=== PATIENT | female | born 1990 | race African-American/Black ===

== ENCOUNTER 2017-03-07 19:15 | Emergency (ER) | payer OTHER ==
[~2017-03-07] VITALS: Ht 162.6 cm; Wt 75.0 kg
[2017-03-07 19:22] VITALS: Ht 162.6 cm; Wt 75.0 kg
[2017-03-07] MEDS ORDERED: ACETAMINOPHEN 325 MG TAB PO STA (19:51)
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
[2017-03-07] MEDS ORDERED: LEVE750T PO (20:02)
[2017-03-07] MEDS ORDERED: LEVETIRACETAM 500 MG TAB PO STA (20:07)
[2017-03-07] MEDS ORDERED: LEVETIRACETAM 250 MG TAB PO STA (20:13)
[2017-03-07 22:05] VITALS: TEMP 36.8
[2017-03-07 22:38] VITALS: BP 120/82; PULSE 79; O2SAT 97
== END 2017-03-07 22:38 | disposition home or self-care (01) ==
LOC: C.EDB 19:20 → C.EDA 22:38
DX: S01.81XA Laceration without foreign body of other part of head, initial encounter (principal); G40.909 Epilepsy, unspecified, not intractable, without status epilepticus; I69.359 Hemiplegia and hemiparesis following cerebral infarction affecting unspecified side; Z79.899 Other long term (current) drug therapy; Y04.0XXA Assault by unarmed brawl or fight, initial encounter

== ENCOUNTER 2017-04-06 09:28 | Emergency (ER) | payer OTHER ==
[~2017-04-06] VITALS: Ht 289.6 cm; Wt 88.5 kg
[~2017-04-06 09:28] MED LIST: LEVE750T PO
[2017-04-06 09:43] VITALS: Ht 289.6 cm; Wt 88.5 kg
[2017-04-06 09:49] VITALS: O2SAT 97
--- NOTE | 2017-04-06 10:07 | EMERGENCY ROOM VISIT NOTE ---
History Report prepared by Neoibbhumika: Aaron Dominguez Under the Supervision of: Dr. Ghassan Saenz D.O. First contact with patient: 09:40 Stated Complaint: SEIZURE History of Present Illness The patient is a 26 year old female who presents to the Emergency Room with complaints of an episode of generalized seizure-like activity occurring just prior to arrival. She is on Keppra for epilepsy, and states that she has been taking her medication as normal. She took her normal dose today. The patient was sitting outside of [email or web address] when her episode occurred. She is unsure how long it lasted. Per nursing staff, the patient's seizure was witnessed by bystanders, who claim that the patient hit her head on the fall. They state that the patient's episode was reported to have lasted for 1-2 minutes, and states that she was unconscious briefly following the episode. They note that the patient is currently homeless, and is sleeping at a local [facility]. The patient did not bite her tongue during her seizure. Source of History: patient Onset: Just prior to arrival Position: other (generalized) Quality: other (seizure-like activity) Timing: other (episode) Associated Symptoms: + LOC Review of Systems See HPI for pertinent positives & negatives. A total of 10 systems reviewed and were otherwise negative. Past Medical & Surgical Medical Problems: (1) Seizures (2) Stroke Family History No pertinent family history stated. Social History Smoking Status: Never Smoker Marital Status: single Housing Status: lives with family Occupation Status: unemployed Current/Historical Medications Scheduled Levetiracetam (Keppra), 750 MG PO BID Allergies Coded Allergies: No Known Allergies (Unverified , 03/07/17) Physical Exam Vital Signs Date Time Temp Pulse Resp B/P (MAP) Pulse Ox O2 Delivery O2 Flow Rate FiO2 04/06/17 09:49 97 Room Air 04/06/17 09:43 37.5 99 18 130/78 97 Room Air Physical Exam CONSTITUTIONAL/VITAL SIGNS: Reviewed / noted above. GENERAL: Non-toxic in appearance. INTEGUMENTARY: Warm, dry, and [place]. HEAD: Normocephalic. EYES: without scleral icterus or trauma. ENT/OROPHARYNX: clear and moist. LYMPHADENOPATHY/NECK: Is supple without lymphadenopathy or meningismus. RESPIRATORY: Lungs clear and equal. CARDIOVASCULAR: Regular rate and rhythm. GI/ABDOMEN: Soft and nontender. No organomegaly or pulsatile mass. No rebound or guarding. Normal bowel sounds. EXTREMITIES: Warm and well perfused. BACK: No CVA tenderness. NEUROLOGICAL: Intact without focal deficits. PSYCHIATRIC: normal affect. MUSCULOSKELETAL: Normally developed with good muscle tone. Medical Decision & Procedures ED Course 0940: Previous medical records were reviewed. The patient was evaluated in room B3B. A complete history and physical examination was performed. 1010: On reevaluation, the patient is resting comfortably. I discussed the results and findings with the patient. She verbalized agreement of the treatment plan. She was discharged home. Medical Decision Differential diagnosis: Etiologies such as infection, hypoglycemia, electrolyte abnormalities, cardiac sources, intracerebral event, trauma, toxicologic, neurologic, as well as others were entertained. This is a 26-year-old female who presents to the ED with a chief complaint of a seizure. The patient has a history of seizures. She is currently on Keppra 750 mg twice a day. The patient, per EMS had a witnessed seizure that lasted 1- 2 minutes. The patient was transported here by EMS. She had a normal blood sugar. The patient is currently awake, alert and oriented. She has no complaints. She did reportedly hit her head but denies any head pains. She denies any tenderness to palpation of her head or neck and does not have any palpable injury to the head. She did not bite her tongue or have incontinence. She denies any injuries and reports that she has been taking her medication as directed. The patient's physical exam was unremarkable. Her vital signs are stable. After exam, the patient was advised to contact her neurologist. She is felt to be stable for discharge and outpatient follow-up. I do not suspect significant injury and she is completely resolve to her baseline. The patient does report that she is currently homeless. She spends the days at a "[employer]" ([facility]) and the nights at a local [facility]. Medication Reconcilliation Current Medication List: was personally reviewed by me Blood Pressure Screening Patient's blood pressure: Elevated blood pressure Blood pressure disposition: Elevated BP felt to be situational Impression Primary Impression: Seizure Scribe Attestation The scribe's documentation has been prepared under my direction and personally reviewed by me in its entirety. I confirm that the note above accurately reflects all work, treatment, procedures, and medical decision making performed by me. Departure Information Dispostion Home / Self-Care Referrals No Doctor, Assigned (PCP) Additional Instructions Continue taking your Keppra as directed. Return for any concerns or new symptoms. Follow-up with your neurologist.
[2017-04-06 10:56] VITALS: BP 128/80; PULSE 75; TEMP 37.5; O2SAT 96
== END 2017-04-06 10:57 | disposition home or self-care (01) ==
LOC: EDBD 09:28 → C.EDB 09:31
DX: G40.909 Epilepsy, unspecified, not intractable, without status epilepticus (principal); W01.10XA Fall on same level from slipping, tripping and stumbling with subsequent striking against unspecified object, initial encounter; Y92.511 Restaurant or cafe as the place of occurrence of the external cause; Z59.0 Homelessness; Z86.73 Personal history of transient ischemic attack (TIA), and cerebral infarction without residual deficits; Z79.899 Other long term (current) drug therapy

== ENCOUNTER 2017-04-07 08:06 | Emergency (ER) | payer OTHER ==
[~2017-04-07] VITALS: Ht 152.4 cm; Wt 84.4 kg
[2017-04-07 08:10] VITALS: TEMP 36.8; O2SAT 98; Ht 152.4 cm; Wt 84.4 kg
[2017-04-07 09:04] VITALS: PULSE 84
[2017-04-07] MEDS ORDERED: MOTRIN HOME PACK 600 MG (4)BTL PO STA (09:08)
[2017-04-07] MEDS ORDERED: IBUPROFEN 600 MG TAB PO STA (09:08)
--- NOTE | 2017-04-07 09:11 | EMERGENCY ROOM VISIT NOTE ---
ED Visit Note First contact with patient: 08:16 CHIEF COMPLAINT: Head injury yesterday, headache HISTORY OF PRESENT ILLNESS: This 26 year old female patient presented to the emergency department via EMS 1 day after receiving a head injury when she had a seizure and fell. The patient was here in the ED yesterday for a witnessed seizure. Witnesses state the patient did ht her head when the seizure occurred. Since the seizure happened, the patient has been experiencing a headache. There was loss of consciousness associated with the seizure, however, the patient does recall the event. There has been no vomiting. The patient complains of generalized headache in the front and back of her head and difficulty concentration. The patient denies nausea, paresthesias, memory difficulty or lapses, confusion, visual disturbances, or weakness more than normal. Of note, the patient does have history of stroke, and does have an affected right side with limited mobility and strength and also with some facial droop on the right side. The headache has been constant. The patient complains of no neck pain. The patient has taken nothing for the pain, as she [place] [facility] [place] [facility] [place] [facility] [place]. The patient rates the pain as 10/10 and throbbing. The patient denies bowel or bladder dysfunction. The patient denies any other injuries. REVIEW OF SYSTEMS: A 10 system review of systems was performed with positives and pertinent negatives listed in the history of present illness. All other systems were reviewed and are negative. ALLERGIES: None MEDICATIONS: Keppra PMH: Seizures SOCIAL HISTORY: The patient is homeless. She is staying at [facility] [place] [facility]. She denies drug, alcohol, tobacco use. PHYSICAL EXAM: Vital Signs: Reviewed Nurse's notes, vital signs stable. GENERAL : This is a 26 year old black female, in no acute distress, well-developed, well -nourished. NEURO: The patient is alert, oriented to person place and time, and coherent. Normal mini mental status exam. Negative Romberg and pronator drift. Cerebellar function intact. HEAD: Normocephalic, atraumatic. There is generalized tenderness on palpation. EYES: Pupils are equal round and reactive to light and accommodation. EOMs are full and optic discs and fundi are normal. There is no swelling or discoloration of the tissue surrounding the eyes. EARS: External auditory canals clear without blood. NOSE: Patent without tenderness. No septal hematoma. FACE: No facial bone tenderness. There is some mild facial droop on the right, which the patient states is normal for her. NECK: Supple. There is no cervical spine tenderness. The patient does not have tenderness with movement of the neck. ED COURSE: I examined the patient. Utilizing the CHIP prediction rule with the patient, she does not meet criteria for CT scan. I discussed with the patient that I suspect based on the amount of time since the injury, the patient 's lack of nausea, vomiting, amnesia, confusion, or visual disturbances, that she is suffering from a concussion and not intracranial hemorrhage. I discussed the use of CT scan in head injury patients and discussed with her that it would not show a concussion, and that we diagnose that clinically. The patient was in agreement with this plan, and was given a dose of ibuprofen to help with the headache. Discharge instructions were reviewed, and the patient was given a home pack for ibuprofen. The patient was discharged home in good condition ambulatory. I attest that I have personally reviewed the patient's current medication list. Patient was found to have normal blood pressure on screening and does not require follow-up. DIFFERENTIAL DIAGNOSIS: Closed head injury, concussion, intracranial hemorrhage , skull fracture, contusion, headache, migraine, malignancy, and others DIAGNOSIS: Closed head injury, headache Problem List Medical Problems: (1) Seizures Status: Chronic (2) Stroke Status: Resolved Current/Historical Medications Scheduled Levetiracetam (Keppra), 750 MG PO BID Allergies Coded Allergies: No Known Allergies (Unverified , 04/07/17) Vital Signs Date Time Temp Pulse Resp B/P (MAP) Pulse Ox O2 Delivery O2 Flow Rate FiO2 04/07/17 09:40 138/68 04/07/17 09:04 84 04/07/17 08:10 36.8 93 18 142/78 98 Room Air Medications Administered Medications (Trade) Dose Ordered Sig/Car Route Start Time Stop Time Status Last Admin Dose Admin Ibuprofen (Ibuprofen 600mg Home Pack) 1 homepack UD STAT PO 04/07/17 09:08 04/07/17 09:09 DC 04/07/17 09:39 1 HOMEPACK Ibuprofen (Motrin Tab) 600 mg NOW STAT PO 04/07/17 09:08 04/07/17 09:09 DC 04/07/17 09:39 600 MG Departure Information Impression Primary Impression: Headache Additional Impression: Closed head injury Dispostion Home / Self-Care Condition GOOD Referrals No Doctor, Assigned (PCP) Patient Instructions ED Headache Tension, My [facility] Additional Instructions You have been treated in the Emergency Department for a Headache. For pain control, you can use the following [id number] medicines (if >12 yo): Ibuprofen(Motrin, Advil) may be used for fever or pain. Use 600mg every six hours as needed. Take with food. Avoid using more than 2400mg in a 24 hour period. Do not use 2400mg per day for more than three consecutive days without physician direction. Prolonged inappropriate use can lead to stomach upset or ulcers. (AND/OR) Acetaminophen(Tylenol) may be used for fever or pain. Use 1000mg every six hours as needed. Avoid using more than 3000mg in a 24 hour period. You should relax in a quiet, dark place for the rest of the day. Avoid any possible triggers including: cigarette smoke, caffeine, nicotine, chocolate, wine, beer, loud noises or music, or bright lights. You should schedule a follow-up appointment in 2-3 days with your Primary Care Provider or established Neurologist for further evaluation and treatment of your Headache. Return to the Emergency Department if your current symptoms worsen despite treatment course outlined above, or if you develop any of the following symptoms : intractable pain despite aforementioned treatment course, visual disturbances , loss of vision, unilateral weakness or facial drooping, slurring of speech, loss of coordination, or loss of consciousness. Problem Qualifiers Primary Impression: Headache Headache type: unspecified Headache chronicity pattern: acute headache Intractability: not intractable Qualified Codes: R51 - Headache Additional Impression: Closed head injury Encounter type: initial encounter Qualified Codes: S09.90XA - Unspecified injury of head, initial encounter
[2017-04-07 09:40] VITALS: BP 138/68
== END 2017-04-07 09:42 | disposition home or self-care (01) ==
LOC: C.EDB 08:06 → EDBD 08:06 → C.EDB 09:42
DX: R51 Headache (principal); S09.90XA Unspecified injury of head, initial encounter; W19.XXXA Unspecified fall, initial encounter; Y92.9 Unspecified place or not applicable; R56.9 Unspecified convulsions; Z86.73 Personal history of transient ischemic attack (TIA), and cerebral infarction without residual deficits

== ENCOUNTER 2017-04-18 21:56 | Emergency (ER) | payer OTHER ==
[~2017-04-18] VITALS: Ht 162.6 cm; Wt 90.0 kg
[2017-04-18 22:05] VITALS: TEMP 36.8; Ht 162.6 cm; Wt 90.0 kg
[2017-04-18] MEDS ORDERED: SODIUM CHLORIDE 0.9% 1000ML 1,000 ML IV STA (22:13)
[2017-04-18 22:58] LABS: BASO % 0.3 %; BASO ABS # 0.03 K/uL (0-0.2); COMPLETE YES; EOS % 0.7 %; HEMATOCRIT 38.4 % (37-47); IG% 0.4 %; LYMPH % 24.3 %; LYMPH ABS # 2.61 K/uL (1.2-3.4); MEAN CELL VOLUME 86.7 fL (80-100); MEAN CORPUSCULAR HEMOGLOBIN 29.6 pg (25-34); MEAN CORPUSCULAR HGB CONC 34.1 g/dl (32-36); MONO % 5.7 %; NEUT % 68.6 %; PLATELET COUNT 298 K/uL (130-400); RED BLOOD COUNT 4.43 M/uL (4.2-5.4); WHITE BLOOD COUNT 10.72 K/uL (4.8-10.8)
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
[2017-04-18 23:17] LABS: BUN/CREATININE RATIO 20.9 (10-20); CALCIUM 9.1 mg/dl (8.5-10.1); CREATININE 0.68 mg/dl (0.60-1.20); POTASSIUM 3.9 mmol/L (3.5-5.1)
[2017-04-18 23:20] LABS: ALB/GLOB RATIO 0.9 (0.9-2)
[2017-04-19 00:15] LABS: URINE APPEARANCE CLEAR (CLEAR); URINE BILIRUBIN NEG (NEG); URINE COLOR YELLOW; URINE EPITHELIAL CELL AUTO >30 /lpf (0-5); URINE NITRITE NEG (NEG); URINE SPECIFIC GRAVITY 1.027 (1.000-1.030); UROBILINOGEN NEG (NEG); ZZUR CULT IF INDIC CLEAN CATCH YES
[2017-04-19 00:31] VITALS: BP 111/65; PULSE 104; O2SAT 97
[2017-04-19 00:37] LABS: BENZODIAZEPINE, URINE NEG (NEG); COCAINE,URINE NEG (NEG); MANUAL MICROSCOPIC REQUIRED? NO; PHENCYCLIDINE, URINE NEG (NEG); REVIEW REQ? YES
== END 2017-04-19 00:45 | disposition home or self-care (01) ==
LOC: EDBD 21:56 → C.EDB 21:58
DX: G40.909 Epilepsy, unspecified, not intractable, without status epilepticus (principal); R00.0 Tachycardia, unspecified; Z79.899 Other long term (current) drug therapy; Z86.73 Personal history of transient ischemic attack (TIA), and cerebral infarction without residual deficits; Z59.0 Homelessness; F17.200 Nicotine dependence, unspecified, uncomplicated

== ENCOUNTER 2017-06-01 22:35 | Emergency (ER) | payer OTHER ==
[~2017-06-01] VITALS: Ht 157.5 cm; Wt 90.6 kg
[2017-06-01 22:39] VITALS: TEMP 36.8; Ht 157.5 cm; Wt 90.6 kg
--- NOTE | 2017-06-01 23:16 | EMERGENCY ROOM VISIT NOTE ---
History First contact with patient: 22:49 Chief Complaint: ED VAG BLEEDING Stated Complaint: PAIN BETWEEN LEGS, VAG BLEEDING History of Present Illness The patient is a 26 year old female who presents to the Emergency Room with complaints of a burning sensation in her groin. The patient states that she has an area of burning in her pelvic region. She states she has some bleeding when she is walking. She states that she does not have menstrual periods. She is unsure if the bleeding is coming from her vagina. She is not sexually active. She rates her discomfort at 10/10. [facility] and instructed to use a cream, but has not started using this yet. Review of Systems A complete 10 point review of systems was reviewed with the patient with pertinent positives and negatives as per history of present illness. All else were negative. Past Medical/Surgical History Medical Problems: (1) Seizures (2) Stroke Social History Smoking Status: Never Smoker Marital Status: single Housing Status: other Occupation Status: unemployed Current/Historical Medications Scheduled Levetiracetam (Keppra), 750 MG PO BID Physical Exam Vital Signs Date Time Temp Pulse Resp B/P (MAP) Pulse Ox O2 Delivery O2 Flow Rate FiO2 06/01/17 23:32 92 20 101/51 95 06/01/17 22:39 36.8 75 16 138/76 98 Room Air Physical Exam VITALS: Vitals are noted on the nurse's note and reviewed by myself. Vital signs stable. GENERAL: This is a 26-year-old female, in no acute distress, nondiaphoretic, well-developed well-nourished. SKIN: There is an erythematous area of skin consistent with chafing in the left groin. HEART: Regular rate and rhythm without murmurs gallops or rubs. LUNGS: Clear to auscultation bilaterally without wheezes, rales or rhonchi. No retractions or accessory muscle use. NEURO: Patient was alert and oriented to person place and time. Medical Decision & Procedures Medical Decision The patient was evaluated as above. She has a small area of chafing to the left groin. She was directed to use a barrier cream such as a diaper ointment to the area and avoid wearing tight underwear. She was instructed to follow-up with her PCP. She verbalized understanding of my assessment and treatment plan was discharged home in good condition. Medication Reconcilliation Current Medication List: was personally reviewed by me Blood Pressure Screening Patient's blood pressure: Normal blood pressure Impression Primary Impression: Chafing Departure Information Dispostion Home / Self-Care Condition GOOD Referrals No Doctor, Assigned (PCP) Patient Instructions My [facility] [employer] Additional Instructions Use the cream as instructed, 2-3 times per day. For pain control, you can use the following [id number] medicines (if >12 yo): - Regular strength (325mg/tab) Tylenol (acetaminophen) 2 tabs every 4-6 hours as needed. Do not exceed 12 tablets in a 24 hour period. Avoid taking more than 4 grams (4000 mg) of Tylenol per day. This includes any other sources of acetaminophen you may take on a regular basis. - Regular strength (200 mg/tab) Advil (ibuprofen) 1-2 tabs every 4-6 hours as needed. Do not exceed a dose of 3200 mg per day. Follow-up with your primary care provider for further evaluation
[2017-06-01 23:32] VITALS: BP 101/51; PULSE 92; O2SAT 95
== END 2017-06-01 23:33 | disposition home or self-care (01) ==
LOC: C.EDB 22:37 → C.EDC 23:33
DX: L30.4 Erythema intertrigo (principal); R56.9 Unspecified convulsions; I63.9 Cerebral infarction, unspecified

== ENCOUNTER 2017-06-06 03:20 | Emergency (ER) | payer OTHER ==
[~2017-06-06] VITALS: Ht 152.4 cm; Wt 95.6 kg
[2017-06-06 03:29] VITALS: Ht 152.4 cm; Wt 95.6 kg
[2017-06-06] MEDS ORDERED: ACETAMINOPHEN 500 MG TAB PO STA (03:41)
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
[2017-06-06 05:35] VITALS: BP 138/78; PULSE 83; O2SAT 97
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
== END 2017-06-06 05:36 | disposition home or self-care (01) ==
LOC: EDBD 03:20 → C.EDA 03:21
DX: S06.9X0A Unspecified intracranial injury without loss of consciousness, initial encounter (principal); S00.531A Contusion of lip, initial encounter; S60.511A Abrasion of right hand, initial encounter; R51 Headache; Y04.2XXA Assault by strike against or bumped into by another person, initial encounter; R56.9 Unspecified convulsions; Z79.899 Other long term (current) drug therapy; F17.210 Nicotine dependence, cigarettes, uncomplicated

== ENCOUNTER 2017-06-29 19:05 | Emergency (ER) | payer OTHER ==
[~2017-06-29] VITALS: Ht 152.4 cm; Wt 107.8 kg
[2017-06-29 19:12] VITALS: TEMP 36.8; O2SAT 94; Ht 152.4 cm; Wt 107.8 kg
--- NOTE | 2017-06-29 20:20 | EMERGENCY ROOM VISIT NOTE ---
History Report prepared by Neoibbhumika: Annie Almaraz Under the Supervision of: Dr. Ghassan Saenz D.O. First contact with patient: 19:54 Chief Complaint: SEIZURE Stated Complaint: SEIZURE Nursing Triage Summary: Pt has known seizure history. Pt is well known to EMS for having frequent seizures and calls 911. Pt normally refuses treatment, but wanted evaluated tonight. Seizure reportedly lasted 1 minute, no post ictal phase. Pt did bite tongue. Alert and oriented for EMS and on arrival. Denies pain or hitting head. Pt is homeless and unsure of compliance to medications. Prescribed Keppra. 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 The patient presents to the ED by EMS. She was walking to the bathroom in the library when she reportedly had a seizure. She did bite her tongue. She is not sure how long the seizure lasted. She currently feels better. The patient is on Keppra for the history of seizures. She states that it has been a while since her last seizure. She denies any missed medications. 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 Review of Systems See HPI for pertinent positives & negatives. A total of 10 systems reviewed and were otherwise negative. Past Medical & Surgical Medical Problems: (1) Seizures (2) Stroke Family History No pertinent family history stated. Social History Smoking Status: Current Every Day Smoker Marital Status: single Housing Status: other Occupation Status: unemployed Current/Historical Medications Scheduled Levetiracetam (Keppra), 750 MG PO BID Allergies Coded Allergies: No Known Allergies (Unverified , 06/06/17) Physical Exam Vital Signs Date Time Temp Pulse Resp B/P (MAP) Pulse Ox O2 Delivery O2 Flow Rate FiO2 06/29/17 20:27 87 20 153/79 96 06/29/17 19:12 36.8 102 18 136/81 96 Room Air 06/29/17 19:12 94 Room Air Physical Exam CONSTITUTIONAL/VITAL SIGNS: Reviewed / noted above. GENERAL: Non-toxic in appearance. INTEGUMENTARY: Warm, dry, and [place]. HEAD: Normocephalic. EYES: without scleral icterus or trauma. ENT/OROPHARYNX: clear and moist. small contusion to the right lateral tongue. LYMPHADENOPATHY/NECK: Is supple without lymphadenopathy or meningismus. RESPIRATORY: Lungs clear and equal. CARDIOVASCULAR: Regular rate and rhythm. GI/ABDOMEN: Soft and nontender. No organomegaly or pulsatile mass. No rebound or guarding. Normal bowel sounds. EXTREMITIES: Warm and well perfused. BACK: No CVA tenderness. NEUROLOGICAL: Intact without focal deficits. PSYCHIATRIC: normal affect. MUSCULOSKELETAL: Normally developed with good muscle tone. Medical Decision & Procedures Laboratory Results ED Course 1956: Previous medical records were reviewed. The patient was evaluated in room C4. A complete history and physical examination was performed. I discussed the results and findings with the patient. She verbalized agreement of the treatment plan. She was discharged. Medical Decision Differential includes acute cardiac dysrhythmia, microinfarction, CVA, TIA, dehydration, anemia, electrolyte disturbance, seizure, trauma, intracranial bleeding, acute vascular catastrophe, thoracic aortic dissection, PE, abdominal aortic aneurysm rupture, infection, hypoglycemia, overdose, trauma. This is a 26-year-old female who presents to the ED with a chief complaint of a seizure. The patient has a history of seizures. The patient states that she has been taking her Keppra twice a day as scheduled. The patient was in a public place when she had the seizure. She presented alone. The onset, duration and description of the seizure is unclear. The patient did have findings to suggest a small contusion of the right lateral tongue that would correlate with the seizure activity. The patient is currently awake, alert and oriented. She has no complaints. Her physical exam is completely normal other than the contusion on the tongue. The patient has not had any recent illness. She denies any chest pains, shortness of breath, abdominal pains, urinary symptoms. She was felt to be stable for discharge. Of note, the patient does not drive. Medication Reconcilliation Current Medication List: was personally reviewed by me Blood Pressure Screening Patient's blood pressure: Elevated blood pressure Blood pressure disposition: Elevated BP felt to be situational Impression Primary Impression: Seizures Scribe Attestation The scribe's documentation has been prepared under my direction and personally reviewed by me in its entirety. I confirm that the note above accurately reflects all work, treatment, procedures, and medical decision making performed by me. Departure Information Dispostion Home / Self-Care Referrals No Doctor, Assigned (PCP) Forms HOME CARE DOCUMENTATION FORM, IMPORTANT VISIT INFORMATION Patient Instructions My [facility] Additional Instructions Follow-up with your doctor for further care and evaluation in 1-2 days. Return to the emergency department for worsening or new symptoms or any concerns. You have been examined and treated today on an emergency basis only. This is not a substitute for, or an effort to provide, complete comprehensive medical care. It is impossible to recognize and treat all injuries or illnesses in a single emergency department visit. It is therefore important that you follow up closely with your doctor. Call as soon as possible for an appointment.
[2017-06-29 20:27] VITALS: BP 153/79; PULSE 87; O2SAT 96
== END 2017-06-29 20:28 | disposition home or self-care (01) ==
LOC: EDBD 19:05 → C.EDC 19:07
DX: G40.909 Epilepsy, unspecified, not intractable, without status epilepticus (principal); Z79.899 Other long term (current) drug therapy; Z86.73 Personal history of transient ischemic attack (TIA), and cerebral infarction without residual deficits; F17.200 Nicotine dependence, unspecified, uncomplicated

== ENCOUNTER 2017-07-02 22:42 | Emergency (ER) | payer OTHER ==
[~2017-07-02] VITALS: Ht 152.4 cm; Wt 92.4 kg
[2017-07-02 22:47] VITALS: TEMP 36.5; Ht 152.4 cm; Wt 92.4 kg
--- NOTE | 2017-07-02 23:21 | EMERGENCY ROOM VISIT NOTE ---
History Report prepared by Gadiel: Janak Rios Under the Supervision of: Dr. Deysi Luna D.O. First contact with patient: 23:08 Chief Complaint: URINARY SYMPTOMS Stated Complaint: HURTS TO PEE,RASH,HARD TIME WALKING Nursing Triage Summary: pt c/o pain between her legs and thinks she is getting a rash again, had it before and [place] [facility] [place]. burning with urination also History of Present Illness The patient is a 26 year old female who presents to the Emergency Room with complaints of a constant rash between her legs beginning last night. The patient states that she has had a rash in between her legs for some time that has been causing her pain. She notes that she has been using a cream that makes her thighs a little numb, which has relieved some of her symptoms. She reports that she has recently run out of the cream, and believes that her rash is coming back. The patient states her symptoms feel like a burning and that her pain worsens when she urinates and walks. She denies any fever, chills, nausea, vomiting, abdominal pain, and vaginal discharge. She notes that she has never had sex. She reports that she has not had her period in a while because it was stopped with control and has not returned since. The patient states that she has no history of herpes. Source of History: patient Onset: last night Position: leg (bilateral) Quality: burning Timing: constant Modifying Factors (Worsening): urination, other (walking) Modifying Factors (Relieving): other (rash cream) Associated Symptoms: No fevers, No chills, No nausea, No vomiting, No abdominal pain Note: The patient also complains of leg pain. She denies any vaginal discharge. Review of Systems See HPI for pertinent positives & negatives. A total of 10 systems reviewed and were otherwise negative. Past Medical & Surgical Medical Problems: (1) Seizures (2) Stroke Family History No pertinent family history stated. Social History Smoking Status: Current Every Day Smoker Marital Status: single Housing Status: other Occupation Status: unemployed Current/Historical Medications Scheduled Levetiracetam (Keppra), 750 MG PO BID Allergies Coded Allergies: No Known Allergies (Unverified , 07/02/17) Physical Exam Vital Signs Date Time Temp Pulse Resp B/P (MAP) Pulse Ox O2 Delivery O2 Flow Rate FiO2 07/03/17 02:03 84 18 102/55 98 07/03/17 00:38 86 18 130/63 99 Room Air 07/02/17 22:47 36.5 98 18 135/82 96 Room Air Physical Exam HEENT: Head - normocephalic and atraumatic Pupils are equal, round, and reactive to light. Extraocular eye muscles are intact, and sclera are anicteric. Nose - moist nasal mucosa without discharge. Mouth - moist buccal mucosa. Oropharynx is nonerythematous and there is no tonsillar exudate or edema noted. Neck: Supple; no JVD, nuchal rigidity, cervical lymphadenopathy, or auscultated bruits. Heart: Regular rate and rhythm. There is a normal S1 and S2 with no murmurs, clicks, or gallops appreciated. Lungs: Clear to auscultation bilaterally with no wheezes, rales, or rhonchi. Abdomen: Soft, completely nontender, nondistended, with good bowel sounds. There are no palpable pulsatile masses or hepatosplenomegaly. There is no guarding, rigidity, or rebound noted. Genitalia: There is an area of induration and erythema on the right inner thigh extending to the right buttock. There were no obvious labial lesions. However , the patient would not allow me to insert the speculum in the vagina for any further exam. Her pain seemed to be most concentrated around that right inner thigh and right buttock area. There is a significant smell of yeast/fungus Extremities: No evidence of cyanosis, clubbing, or edema. There are easily palpable peripheral pulses. Skin: warm and dry with good turgor Medical Decision & Procedures Laboratory Results Test 07/03/17 00:30 Urine Color YELLOW Urine Appearance CLOUDY (CLEAR) Urine pH 6.5 (4.5-7.5) Urine Specific [place] 1.025 (1.000-1.030) Urine Protein NEG (NEG) Urine Glucose (UA) NEG (NEG) Urine Ketones TRACE (NEG) Urine Occult Blood NEG (NEG) Urine Nitrite NEG (NEG) Urine Bilirubin NEG (NEG) Urine Urobilinogen NEG (NEG) Urine Leukocyte Esterase MODERATE (NEG) Urine WBC (Auto) 10-30 /hpf (0-5) Urine RBC (Auto) 0-4 /hpf (0-4) Urine Hyaline Casts (Auto) 5-10 /lpf (0-5) Urine Epithelial Cells (Auto) >30 /lpf (0-5) Urine Bacteria (Auto) 1+ (NEG) Urine Yeast (Auto) (NONE PRSENT) Urine Test NEG (NEG) Laboratory results per my review. Medications Administered Medications (Trade) Dose Ordered Sig/Car Route Start Time Stop Time Status Last Admin Dose Admin Betamethasone/ Clotrimazole (Lotrisone Crm) 1 appln NOW STAT EXT 07/03/17 00:26 07/03/17 00:28 DC 07/03/17 00:53 1 APPLN Fluconazole (Diflucan Tab) 150 mg STK-MED ONCE .ROUTE 07/03/17 01:56 07/03/17 01:57 DC 07/03/17 02:00 150 MG Procedure 0026: Betamethasone/Clotrimazole 1 appln EXT ED Course 2312: Past medical records reviewed. The patient was evaluated in room B2. A complete history and physical exam was performed. 2356: I performed a pelvic exam on the patient. 0026: Betamethasone/Clotrimazole 1 appln EXT 0056: I reevaluated and updated the patient. 0148: I rechecked the patient. Her urine sample will be sent for culture. 0223: Upon reevaluation, the patient is stable. I discussed findings and results with her. She verbalized agreement of the treatment plan. The patient was discharged home. Medical Decision The patient is a 26 year old female who presents to the Emergency Room with complaints of a constant rash between her legs beginning last night. Differential diagnoses include: UTI, herpes, candidiasis, and contact dermatitis. Lab Results Show: negative. Trace ketones. Moderate leukocyte esterase. 10-30 white blood cells. 1+ bacteria. This is a 26-year-old female patient who presents to the emergency department with a rash on her right inner thigh. The patient describes discomfort in the genitalia and dysuria. Her urine appeared to be contaminated but will be sent for culture. Due to the significant smell of fungus/yeast, I have opted to treat the patient with Lotrisone cream on the skin and I gave her a Diflucan. She was encouraged to follow-up here in the emergency department if symptoms worsened. Medication Reconcilliation Current Medication List: was personally reviewed by me Blood Pressure Screening Patient's blood pressure: Normal blood pressure Blood pressure disposition: Did not require urgent referral Impression Primary Impression: Fungal skin infection Scribe Attestation The scribe's documentation has been prepared under my direction and personally reviewed by me in its entirety. I confirm that the note above accurately reflects all work, treatment, procedures, and medical decision making performed by me. Departure Information Dispostion Home / Self-Care Referrals No Doctor, Assigned (PCP) Forms HOME CARE DOCUMENTATION FORM, IMPORTANT VISIT INFORMATION Patient Instructions My [facility] Additional Instructions Keep your vaginal area as clean as possible. Soak in tub for vaginal comfort and to pee if necessary. Use lotrisone on rash that is on your right leg. Return to the ER if symptoms worsen.
[2017-07-03] MEDS ORDERED: CLOTRIMAZOLE/BETAMETHASONE CR 15 GM TUBE EXT STA (00:26)
[2017-07-03] MEDS ORDERED: FLUCONAZOLE 100 MG TAB PO STA (01:52)
[2017-07-03] MEDS ORDERED: FLUCONAZOLE 50 MG TAB ONE (01:56)
[2017-07-03 02:03] VITALS: BP 102/55; PULSE 84; O2SAT 98
== END 2017-07-03 02:04 | disposition home or self-care (01) ==
LOC: C.EDB 22:44
DX: B36.9 Superficial mycosis, unspecified (principal); R30.0 Dysuria; F17.200 Nicotine dependence, unspecified, uncomplicated; R56.9 Unspecified convulsions; Z86.73 Personal history of transient ischemic attack (TIA), and cerebral infarction without residual deficits

== ENCOUNTER 2017-07-13 17:53 | Emergency (ER) | payer OTHER ==
[~2017-07-13] VITALS: Ht 152.4 cm; Wt 93.7 kg
[2017-07-13 17:59] VITALS: TEMP 36.4; Ht 152.4 cm; Wt 93.7 kg
[2017-07-13] MEDS ORDERED: SODIUM CHLORIDE 0.9% 1000ML 1,000 ML IV STA (18:08)
--- NOTE | 2017-07-13 18:17 | EMERGENCY ROOM VISIT NOTE ---
History Report prepared by Gadiel: Kayleen Richardson Under the Supervision of: Dr. Ghassan Lott M.D. First contact with patient: 17:58 Chief Complaint: SEIZURE Stated Complaint: SEIZURE Nursing Triage Summary: Alert and oriented. History of Present Illness The patient is a 26 year old female who presents to the Emergency Room with complaints of an episode of a seizure occurring prior to arrival. The patient states that she has a history of seizures and takes Keppra. She denies missing any doses. She states that she doesn't remember the seizure and only remembers waking up in the ambulance. The patient complains of feeling fatigued. The patient denies a headache, abdominal pain, the use of drugs, the use of alcohol , and being sick recently. The patient notes that she was at the doctor's Monday and is unsure if it was her neurologist or her PCP. Source of History: patient Onset: prior to arrival Position: other (global) Quality: other (seizure) Timing: other (episode) Associated Symptoms: + fatigue, No headache, No abdominal pain Review of Systems See HPI for pertinent positives & negatives. A total of 10 systems reviewed and were otherwise negative. Past Medical & Surgical Medical Problems: (1) Seizures (2) Stroke Family History Patient reports no known family medical history. Social History Smoking Status: Current Every Day Smoker Alcohol Use: none Drug Use: none Marital Status: single Housing Status: other Occupation Status: unemployed Current/Historical Medications Scheduled Levetiracetam (Keppra), 750 MG PO BID Sulfa/Trimethoprim (Bactrim Ds 800MG/160MG), 1 TAB PO BID Allergies Coded Allergies: No Known Allergies (Unverified , 07/02/17) Physical Exam Vital Signs Date Time Temp Pulse Resp B/P (MAP) Pulse Ox O2 Delivery O2 Flow Rate FiO2 07/13/17 20:11 102 22 104/59 100 Room Air 07/13/17 19:11 94 18 112/59 100 Room Air 07/13/17 18:25 98 Room Air 07/13/17 18:25 98 Room Air 07/13/17 18:10 124 07/13/17 17:59 36.4 128 20 146/71 97 Room Air Physical Exam GENERAL: Awake, alert, well-appearing, in no acute distress HENT: Normocephalic, atraumatic. Oropharynx unremarkable. EYES: Normal conjunctiva. Sclera non-icteric. NECK: Supple. No nuchal rigidity. FROM. No JVD. RESPIRATORY: Clear to auscultation. CARDIAC: Regular rate, normal rhythm. Extremities warm and well perfused. Pulses equal. ABDOMEN: Soft, non-distended. No tenderness to palpation. No rebound or guarding. No masses. RECTAL: Deferred. MUSCULOSKELETAL: Chest examination reveals no tenderness. The back is symmetrical on inspection without obvious abnormality. There is no CVA tenderness to palpation. No joint edema. LOWER EXTREMITIES: Calves are equal size bilaterally and non-tender. No edema. No discoloration. NEURO: Normal sensorium. No sensory or motor deficits noted. Right sided hand weakness that she says is old. She has a right sided facial droop that is suspected to be old as well. SKIN: No rash or jaundice noted. Medical Decision & Procedures Laboratory Results 07/13/17 18:50 Red Blood Count 4.66, Mean Corpuscular Volume 84.8, Mean Corpuscular Hemoglobin 29.2, Mean Corpuscular Hemoglobin Concent 34.4, Mean Platelet Volume 10.5, Neutrophils (%) (Auto) 78.5, Lymphocytes (%) (Auto) 15.0, Monocytes (%) (Auto) 5.4, Eosinophils (%) (Auto) 0.6, Basophils (%) (Auto) 0.2, Neutrophils # (Auto) 9.81, Lymphocytes # (Auto) 1.87, Monocytes # (Auto) 0.68, Eosinophils # (Auto) 0.07, Basophils # (Auto) 0.03 07/13/17 18:50 Test 07/13/17 18:17 07/13/17 18:50 07/13/17 19:00 Bedside Glucose 114 mg/dl (70-90) White Blood Count 12.50 K/uL (4.8-10.8) Red Blood Count 4.66 M/uL (4.2-5.4) Hemoglobin 13.6 g/dL (12.0-16.0) Hematocrit 39.5 % (37-47) Mean Corpuscular Volume 84.8 fL (80-100) Mean Corpuscular Hemoglobin 29.2 pg (25-34) Mean Corpuscular Hemoglobin Concent 34.4 g/dl (32-36) Platelet Count 269 K/uL (130-400) Mean Platelet Volume 10.5 fL (7.4-10.4) Neutrophils (%) (Auto) 78.5 % Lymphocytes (%) (Auto) 15.0 % Monocytes (%) (Auto) 5.4 % Eosinophils (%) (Auto) 0.6 % Basophils (%) (Auto) 0.2 % Neutrophils # (Auto) 9.81 K/uL (1.4-6.5) Lymphocytes # (Auto) 1.87 K/uL (1.2-3.4) Monocytes # (Auto) 0.68 K/uL (0.11-0.59) Eosinophils # (Auto) 0.07 K/uL (0-0.5) Basophils # (Auto) 0.03 K/uL (0-0.2) RDW Standard Deviation 40.9 fL (36.4-46.3) RDW Coefficient of Variation 13.3 % (11.5-14.5) Immature Granulocyte % (Auto) 0.3 % Immature Granulocyte # (Auto) 0.04 K/uL (0.00-0.02) Prothrombin Time 10.0 SECONDS (9.0-12.0) Prothromb Time International Ratio 1.0 (0.9-1.1) Activated Partial Thromboplast Time 26.4 SECONDS (21.0-31.0) Partial Thromboplastin Ratio 1.0 Anion Gap 9.0 mmol/L (3-11) Est Creatinine Clear Calc Drug Dose 130.5 ml/min Estimated GFR () 141.9 Estimated GFR (Non- 122.4 BUN/Creatinine Ratio 19.7 (10-20) Calcium Level 8.9 mg/dl (8.5-10.1) Phosphorus Level 2.7 mg/dl (2.5-4.9) Magnesium Level 2.0 mg/dl (1.8-2.4) Thyroid Stimulating Hormone (TSH) 2.130 uIu/ml (0.300-4.500) Urine Color YELLOW Urine Appearance CLEAR (CLEAR) Urine pH 6.5 (4.5-7.5) Urine Specific [place] 1.028 (1.000-1.030) Urine Protein NEG (NEG) Urine Glucose (UA) NEG (NEG) Urine Ketones NEG (NEG) Urine Occult Blood NEG (NEG) Urine Nitrite NEG (NEG) Urine Bilirubin NEG (NEG) Urine Urobilinogen NEG (NEG) Urine Leukocyte Esterase TRACE (NEG) Urine WBC (Auto) 5-10 /hpf (0-5) Urine RBC (Auto) 0-4 /hpf (0-4) Urine Hyaline Casts (Auto) 1-5 /lpf (0-5) Urine Epithelial Cells (Auto) >30 /lpf (0-5) Urine Bacteria (Auto) 1+ (NEG) Date/Time Source Procedure Growth Status 07/13/17 19:00 Urine , Clean Catch Urine Culture - Final THREE TYPES OF ORGANSIMS PRESENT, ALL... Complete Labs reviewed by ED physician. Medications Administered Medications (Trade) Dose Ordered Sig/Car Route Start Time Stop Time Status Last Admin Dose Admin Sodium Chloride 1,000 ml @ 999 mls/hr Q1H1M STAT IV 07/13/17 18:08 07/13/17 19:08 DC 07/13/17 18:52 999 MLS/HR Ceftriaxone Sodium (Rocephin Inj) 1 gm NOW STAT IV 07/13/17 19:44 07/13/17 19:45 DC 07/13/17 20:02 1 GM ED Course 1803: Past medical records reviewed. The patient was evaluated in room B11B. A complete history and physical examination was performed. 1807: Ordered NSS 1000 ml @ 999 mls/hr IV. 0: I reevaluated the patient and she is doing okay. 1831: I reevaluated the patient and she is doing well. 1924: I reevaluated the patents and she is feeling better. 1943: Ordered Rocephin Inj 1 gm IV. 1999: Ordered Keppra Tab 1000 mg PO. 2009: Upon reexamination the patient is resting comfortably. I instructed the patient to take her Keppra twice daily and opened her bottle to give her a dose. I noticed that she had not opened this bottle since Monday when it was prescribed and upped. She had not taken any of her medications since seeing the neurologist on Monday. I discussed results and treatment plan with the patient. She verbalizes agreement and understanding. The patient is ready for discharge. Medical Decision Differential diagnosis: Etiologies such as infection, hypoglycemia, electrolyte abnormalities, cardiac sources, intracerebral event, trauma, toxicologic, neurologic, as well as others were entertained. This is a 26-year-old female with a history of seizures who was just at her neurologist office Monday to have her Keppra increased over concerns about seizures. Patient has no evidence of meningitis or encephalitis on examination. After further questioning the patient turns out that the patient has not bumped up her Keppra level. In fact she had her Keppra medication with her in the 1000 mg tablet was unopened. The patient was then given her own home medication 1000 mg. She was also given normal saline bolus. Patient has returned to her baseline. I stressed the need to continue to take her Keppra. Patient was in agreement with the treatment plan. Patient will also be treated for UTI was placed on Bactrim. Medication Reconcilliation Current Medication List: was personally reviewed by me Blood Pressure Screening Patient's blood pressure: Elevated blood pressure Blood pressure disposition: Elevated BP felt to be situational Impression Primary Impression: Seizure Additional Impression: UTI (urinary tract infection) Scribe Attestation The scribe's documentation has been prepared under my direction and personally reviewed by me in its entirety. I confirm that the note above accurately reflects all work, treatment, procedures, and medical decision making performed by me. Departure Information Dispostion Home / Self-Care Prescriptions Sulfa/Trimethoprim (Bactrim Ds 800MG/160MG) Tab 1 TAB PO BID for 7 Days, #14 TAB Prov: Ghassan Lott MD 07/13/17 Referrals No Doctor, Assigned (PCP) Forms HOME CARE DOCUMENTATION FORM, IMPORTANT VISIT INFORMATION Patient Instructions My [facility] Additional Instructions Take 1000 mg Keppra twice a day Culture results are usually available in approx 48 hours You have been examined and treated today on an emergency basis only. This is not a substitute for, or an effort to provide, complete comprehensive medical care. It is impossible to recognize and treat all injuries or illnesses in a single emergency department visit. It is therefore important that you follow up closely with your PCP. Call as soon as possible for an appointment. Thank you for your time and consideration. I look forward to speaking with you again soon. Please don't hesitate to call us if you have any questions. Problem Qualifiers Additional Impression: UTI (urinary tract infection) Urinary tract infection type: acute cystitis Hematuria presence: with hematuria Qualified Codes: N30.01 - Acute cystitis with hematuria
[2017-07-13 18:25] VITALS: O2SAT 98
[2017-07-13 19:21] LABS: BASO % 0.2 %; BASO ABS # 0.03 K/uL (0-0.2); EOS % 0.6 %; EOS ABS # 0.07 K/uL (0-0.5); HEMATOCRIT 39.5 % (37-47); HEMOGLOBIN 13.6 g/dL (12.0-16.0); IG# 0.04 K/uL (0.00-0.02); LYMPH ABS # 1.87 K/uL (1.2-3.4); MEAN CELL VOLUME 84.8 fL (80-100); MEAN CORPUSCULAR HEMOGLOBIN 29.2 pg (25-34); MEAN CORPUSCULAR HGB CONC 34.4 g/dl (32-36); MEAN PLATELET VOLUME 10.5 fL (7.4-10.4); MONO % 5.4 %; MONO ABS # 0.68 K/uL (0.11-0.59); NEUT % 78.5 %; NEUT ABS # 9.81 K/uL (1.4-6.5); PLATELET COUNT 269 K/uL (130-400); RED CELL DISTRIBUTION WIDTH CV 13.3 % (11.5-14.5); RED CELL DISTRIBUTION WIDTH SD 40.9 fL (36.4-46.3)
[2017-07-13 19:32] LABS: PTT PATIENT 26.4 SECONDS (21.0-31.0)
[2017-07-13] MEDS ORDERED: CEFTRIAXONE SOD INJ 1 GM ADDVIAL IV STA (19:44)
[2017-07-13 19:45] LABS: CALCIUM 8.9 mg/dl (8.5-10.1); CREATININE 0.68 mg/dl (0.60-1.20); POTASSIUM 3.7 mmol/L (3.5-5.1)
[2017-07-13 19:56] LABS: PHOSPHORUS 2.7 mg/dl (2.5-4.9)
[2017-07-13] MEDS ORDERED: LEVETIRACETAM 500 MG TAB PO STA (20:00)
[2017-07-13 20:11] VITALS: BP 104/59; PULSE 102; O2SAT 100
[2017-07-13] MEDS ORDERED: SULF800T23 PO (20:19)
== END 2017-07-13 20:35 | disposition home or self-care (01) ==
LOC: EDBD 17:53 → C.EDB 17:54
DX: R56.9 Unspecified convulsions (principal); N30.01 Acute cystitis with hematuria; Z86.73 Personal history of transient ischemic attack (TIA), and cerebral infarction without residual deficits; F17.210 Nicotine dependence, cigarettes, uncomplicated

== ENCOUNTER 2017-07-23 11:31 | Emergency (ER) | payer OTHER ==
[~2017-07-23] VITALS: Ht 152.4 cm; Wt 94.0 kg
[2017-07-23 11:31] VITALS: TEMP 37.1; Ht 152.4 cm; Wt 94.0 kg
[2017-07-23] MEDS ORDERED: LORAZEPAM 1 MG TAB SL STA (11:52)
--- NOTE | 2017-07-23 11:56 | EMERGENCY ROOM VISIT NOTE ---
History Report prepared by Gadiel: Les Richey Under the Supervision of: Dr. Bentley Varner M.D. First contact with patient: 11:45 Chief Complaint: SEIZURE Stated Complaint: SEIZURE History of Present Illness The patient is a 26 year old female who presents to the Emergency Room with complaints of 1 episode of a seizure that began prior to arrival. Per her friend , the patient had a seizure today while sitting at [employer] that lasted 4 minutes with no head injury or bitten tongue. The patient reports she has dizziness and a constant mild headache. The patient had an increase in Keppra 2 weeks ago and states that she has been taking it. The last time she was in the ED, she was not taking her medications. Additionally, she did not fill her Bactrim prescription for her previous UTI. She has a history of seizures and states that this current episode is similar to previous. She states she had a seizure yesterday and that she bit her tongue. She denies abdominal pain, urinary symptoms, back pain, chest pain, and SOB. Source of History: patient, friend Onset: MEDICAL INTERN Position: head Symptom Intensity: mild Quality: ache Timing: constant Associated Symptoms: + headache, No chest pain, No SOB, No abdominal pain, No back pain, No urinary symptoms Note: Patient complains of dizziness. Review of Systems See HPI for pertinent positives & negatives. A total of 10 systems reviewed and were otherwise negative. Past Medical & Surgical Medical Problems: (1) ADHD (2) Pediatric stroke (3) Seizures (4) Stroke Family History FH: HTN (hypertension) FHx: cancer FHx: diabetes mellitus Social History Smoking Status: Current Every Day Smoker Alcohol Use: occasionally Drug Use: none Marital Status: single Housing Status: other (lives with [employer]) Occupation Status: unemployed Current/Historical Medications Scheduled Levetiracetam (Keppra), 750 MG PO BID Allergies Coded Allergies: No Known Allergies (Unverified , 07/23/17) Physical Exam Vital Signs Date Time Temp Pulse Resp B/P (MAP) Pulse Ox O2 Delivery O2 Flow Rate FiO2 07/23/17 13:05 93 18 104/58 100 Room Air 07/23/17 11:40 101 07/23/17 11:40 Room Air 07/23/17 11:31 37.1 100 20 137/54 99 Room Air Physical Exam GENERAL: Patient is well appearing and in no acute distress. EYES: No scleral icterus, unremarkable pupils. ENT: Mucous membranes moist, no nasal congestion. NECK: No masses appreciated, no meningismus, trachea is midline. RESPIRATORY: No dyspnea. Clear to auscultation and equal bilaterally. No wheeze , no rhonchi. CARDIOVASCULAR: Regular rate and rhythm. No murmurs, rubs, gallops appreciated. GASTROINTESTINAL: Abdomen soft, nontender, no peritonitis. Bowel sounds positive. No masses appreciated. BACK: No midline tenderness, no CVA tenderness EXTREMITIES: Normal motion all extremities, no cyanosis, no edema. NEUROLOGIC: Alert and oriented, no acute motor or sensory deficits, no focal weakness, cranial nerves grossly intact. SKIN: No rash, no jaundice, no diaphoresis. Medical Decision & Procedures Laboratory Results Test 07/23/17 12:12 Urine Color YELLOW Urine Appearance CLOUDY (CLEAR) Urine pH 5.5 (4.5-7.5) Urine Specific [place] 1.027 (1.000-1.030) Urine Protein NEG (NEG) Urine Glucose (UA) NEG (NEG) Urine Ketones TRACE (NEG) Urine Occult Blood NEG (NEG) Urine Nitrite NEG (NEG) Urine Bilirubin NEG (NEG) Urine Urobilinogen NEG (NEG) Urine Leukocyte Esterase SMALL (NEG) Urine WBC (Auto) 5-10 /hpf (0-5) Urine RBC (Auto) 0-4 /hpf (0-4) Urine Hyaline Casts (Auto) 0 /lpf (0-5) Urine Epithelial Cells (Auto) >30 /lpf (0-5) Urine Bacteria (Auto) 2+ (NEG) Urine Renal Epithelial Cells /lpf (0-5) Urine Crystals AMORPHOUS SEDIMENT (NONE Urine Test NEG (NEG) Date/Time Source Procedure Growth Status 07/23/17 12:12 Urine , Clean Catch Urine Culture - Final MORE THAN THREE TYPES OF ORGANISMS MA... Complete Laboratory results as reviewed by me. Medications Administered Medications (Trade) Dose Ordered Sig/Car Route Start Time Stop Time Status Last Admin Dose Admin Lorazepam (Ativan Tab) 1 mg NOW STAT SL 07/23/17 11:52 07/23/17 11:54 DC 07/23/17 12:14 1 MG ED Course 1145: The patient was evaluated in room B8. A complete history and physical exam was performed. 1310: I checked on the patient and she is resting comfortably. She states she feels much better and would like to go home. 1315: Reevaluated the patient. Discussed results and discharge instructions: She verbalized understanding and agreement. The patient is ready for discharge. Medical Decision 26 yr old female becoming well known to department due to frequent visits for seizures since she moved here Feb 2017. Admits her frequent seizures are nothing new. States 2 in last 24 hours. Is adamant she has been taking medications properly, though I would note it was clear last visit she hadn't been following directions per ED note. Furthermore she never filled Rx for Bactrim for possible UTI last visit. She is in no distress, this is nothing new and she looks well. I see no evidence of tongue/lip laceration at this time that she reports happened last night. I see no emergent indication for lab testing other than making sure UTI has cleared. She was given 1 mg PO Ativan to help blunt further seizure though as not actively seizing I do not feel full dosing necessary. This is a chronic issue and I do not feel that emergent imaging of brain necessary nor admission for that matter. Medication Reconcilliation Current Medication List: was personally reviewed by me Blood Pressure Screening Patient's blood pressure: Low blood pressure Blood pressure disposition: Did not require urgent referral Impression Primary Impression: Seizures Scribe Attestation The scribe's documentation has been prepared under my direction and personally reviewed by me in its entirety. I confirm that the note above accurately reflects all work, treatment, procedures, and medical decision making performed by me. Departure Information Dispostion Home / Self-Care Referrals No Doctor, Assigned (PCP) Patient Instructions ED Seizure Recurrent, My [facility] Additional Instructions It is very important you continue to follow with your primary provider and neurologist for further evaluation to discuss your ongoing seizure issues.
[2017-07-23 13:05] VITALS: BP 104/58; PULSE 93; O2SAT 100
== END 2017-07-23 13:15 | disposition home or self-care (01) ==
LOC: EDBD 11:31 → C.EDB 11:32
DX: R56.9 Unspecified convulsions (principal); F90.9 Attention-deficit hyperactivity disorder, unspecified type; Z86.73 Personal history of transient ischemic attack (TIA), and cerebral infarction without residual deficits; Z82.49 Family history of ischemic heart disease and other diseases of the circulatory system; Z80.9 Family history of malignant neoplasm, unspecified; Z83.3 Family history of diabetes mellitus; F17.210 Nicotine dependence, cigarettes, uncomplicated; Z79.899 Other long term (current) drug therapy

== ENCOUNTER 2017-08-07 18:09 | Emergency (ER) | payer OTHER ==
[~2017-08-07] VITALS: Ht 152.4 cm; Wt 96.8 kg
[2017-08-07 18:19] VITALS: Ht 152.4 cm; Wt 96.8 kg
[2017-08-07 18:22] VITALS: TEMP 37.1; O2SAT 97
--- NOTE | 2017-08-07 18:38 | EMERGENCY ROOM VISIT NOTE ---
History Report prepared by Gadiel: Constantin Gomez Under the Supervision of: Dr. Orville Haley M.D. First contact with patient: 18:09 Chief Complaint: SEIZURE Stated Complaint: SEIZURE History of Present Illness The patient is a 26 year old black female with a past medical history of ADHD, a pediatric stroke on the right side, and seizures, who presents to the ED with a cc of a resolved seizure that occurred 45 minutes ago. Nursing staff states the patient was sitting in the waiting room at [employer] when she slid out of her chair. They note her arms went straight up, her legs curled in, and then she rolled onto her side. Nursing staff reports she seized for about 3 minutes. Pt takes Keppra and has not had a seizure in a month. Positive recent decrease in Keppra dosing from 750 to 500mg. Negative headache, face pain, missing a Keppra dose, and using: stimulants, supplements, alcohol, tobacco, or drugs. Review of EMR states the patient was evaluated in the ED for seizures on the and 13 of July in addition to July 23. It reports there is concern for noncompliance. Source of History: nursing staff Onset: 45 minutes ago Symptom Intensity: 3 minutes Quality: other (seizure) Timing: resolved Associated Symptoms: No headache Note: Denies: face pain Review of Systems See HPI for pertinent positives and negatives. A total of ten systems were reviewed and were otherwise negative. Past Medical & Surgical Medical Problems: (1) ADHD (2) Pediatric stroke (3) Seizures (4) Stroke Family History FH: HTN (hypertension) FHx: cancer FHx: diabetes mellitus Social History Smoking Status: Current Every Day Smoker Smokeless Tobacco Use: No Alcohol Use: none Drug Use: none Marital Status: single Housing Status: other Occupation Status: unemployed Current/Historical Medications Scheduled Fluoxetine (Prozac), 10 MG PO DAILY Levetiracetam (Keppra), 1,000 MG PO BID Levetiracetam (Keppra), 250 MG PO BID Allergies Coded Allergies: No Known Allergies (Unverified , 07/23/17) Physical Exam Vital Signs Date Time Temp Pulse Resp B/P (MAP) Pulse Ox O2 Delivery O2 Flow Rate FiO2 08/07/17 19:32 95 20 121/67 97 Room Air 08/07/17 18:26 98 4/16/18 18:22 97 Room Air 08/07/17 18:22 37.1 102 22 133/72 97 Room Air 08/07/17 18:19 37.1 102 22 133/72 97 Room Air Physical Exam GENERAL: Awake, alert, well-appearing, NAD. Wearing glasses. HENT: Normocephalic, atraumatic. EYES: Normal conjunctiva. Sclera non-icteric. NECK: Supple. No nuchal rigidity. FROM. No midline c-spine TTP. RESPIRATORY: CTAB, no rhonchi, wheezing, crackles CARDIAC: RRR, no MRG ABDOMEN: Soft, NTND, BS+ MSK: No chest wall TTP, no LE edema. No chest, abdominal, pelvis, or back pain. NEURO: GCS 15, CN 2-12 intact, moves all 4s on command. Right side: UE and LE weakness. 4/5 strength bilaterally with no sensory deficit. Left side: UE and LE are 5/5 in strength bilaterally with no sensory deficit. SKIN: No rash or jaundice noted. Medical Decision & Procedures ER Provider Diagnostic Interpretation: Radiology results as stated below per my review and radiologist interpretation: HEAD WITHOUT CONTRAST (CT) CLINICAL HISTORY: 26 years-old Female with SEIZURE. Acute seizure TECHNIQUE: Multiple axial CT images of the head were obtained without contrast. A dose lowering technique was utilized adhering to the principles of ALARA. CT DOSE: 537.48 mGy.cm COMPARISON: CT head 06/06/2017. FINDINGS: No acute intracranial hemorrhage, midline shift, intracranial mass, hydrocephalus, territorial ischemia or abnormal extra-axial collection. Encephalomalacia of the left MCA distribution redemonstrated from area of remote infarction with ex vacuo dilation of the left lateral ventricle. Wallerian degeneration of the left midbrain. The calvarium is intact. The paranasal sinuses, mastoid air cells, and middle ear cavities are clear. IMPRESSION: No acute intracranial abnormality. The above report was generated using voice recognition software. It may contain grammatical, syntax or spelling errors. Electronically signed by: Andrew Hawkins M.D. 08/07/2017 7:30 PM Dictated Date/Time: 08/07/2017 7:27 PM CHEST ONE VIEW PORTABLE HISTORY: 26 years-old Female SEIZURE acute seizure COMPARISON: None available TECHNIQUE: Portable AP view of the chest FINDINGS: The patient is rotated and side bent to the right. Cardiac silhouette is within normal limits. Lungs are mildly hypoinflated with bronchovascular crowding. No pneumothorax, pleural effusion, focal airspace consolidation or overt pulmonary edema. Bones of the chest appear grossly intact. Mild gastric distention of the stomach. IMPRESSION: Mild hypoinflation without acute process. The above report was generated using voice recognition software. It may contain grammatical, syntax or spelling errors. Electronically signed by: Andrew Hawkins M.D. 08/07/2017 6:55 PM Dictated Date/Time: 08/07/2017 6:53 PM Laboratory Results 08/07/17 18:55 Red Blood Count 4.46, Mean Corpuscular Volume 83.9, Mean Corpuscular Hemoglobin 29.4, Mean Corpuscular Hemoglobin Concent 35.0, Mean Platelet Volume 10.0, Neutrophils (%) (Auto) 68.0, Lymphocytes (%) (Auto) 23.7, Monocytes (%) (Auto) 6.3, Eosinophils (%) (Auto) 1.2, Basophils (%) (Auto) 0.4, Neutrophils # (Auto) 5.06, Lymphocytes # (Auto) 1.76, Monocytes # (Auto) 0.47, Eosinophils # (Auto) 0.09, Basophils # (Auto) 0.03 08/07/17 18:55 Test 08/07/17 18:20 08/07/17 18:55 White Blood Count 7.44 K/uL (4.8-10.8) Red Blood Count 4.46 M/uL (4.2-5.4) Hemoglobin 13.1 g/dL (12.0-16.0) Hematocrit 37.4 % (37-47) Mean Corpuscular Volume 83.9 fL (80-100) Mean Corpuscular Hemoglobin 29.4 pg (25-34) Mean Corpuscular Hemoglobin Concent 35.0 g/dl (32-36) Platelet Count 274 K/uL (130-400) Mean Platelet Volume 10.0 fL (7.4-10.4) Neutrophils (%) (Auto) 68.0 % Lymphocytes (%) (Auto) 23.7 % Monocytes (%) (Auto) 6.3 % Eosinophils (%) (Auto) 1.2 % Basophils (%) (Auto) 0.4 % Neutrophils # (Auto) 5.06 K/uL (1.4-6.5) Lymphocytes # (Auto) 1.76 K/uL (1.2-3.4) Monocytes # (Auto) 0.47 K/uL (0.11-0.59) Eosinophils # (Auto) 0.09 K/uL (0-0.5) Basophils # (Auto) 0.03 K/uL (0-0.2) RDW Standard Deviation 40.2 fL (36.4-46.3) RDW Coefficient of Variation 13.3 % (11.5-14.5) Immature Granulocyte % (Auto) 0.4 % Immature Granulocyte # (Auto) 0.03 K/uL (0.00-0.02) Anion Gap 8.0 mmol/L (3-11) Est Creatinine Clear Calc Drug Dose 114.4 ml/min Estimated GFR () 121.4 Estimated GFR (Non- 104.8 BUN/Creatinine Ratio 11.9 (10-20) Calcium Level 8.8 mg/dl (8.5-10.1) Phosphorus Level 2.7 mg/dl (2.5-4.9) Magnesium Level 2.0 mg/dl (1.8-2.4) Thyroid Stimulating Hormone (TSH) 1.780 uIu/ml (0.300-4.500) Laboratory results reviewed by me Medications Administered Medications (Trade) Dose Ordered Sig/Car Route Start Time Stop Time Status Last Admin Dose Admin Levetiracetam 250 mg/Dextrose 102.5 ml @ 420 mls/hr ONE STAT IV 08/07/17 19:15 08/07/17 19:29 DC 08/07/17 19:31 420 MLS/HR ECG Per My Interpretation Indication: other (seizure) Rate (beats per minute): 93 Rhythm: normal sinus Findings: other (Normal axis, normal intervals, no STS changes or TWI) ED Course 1811: The patient was evaluated in room A10. A complete history and physical exam was performed. 2008: I reevaluated the patient. Discussed results and discharge instructions: she verbalized understanding and agreement. The patient is ready for discharge. Medical Decision Nursing notes reviewed. Ancillary studies and prior records reviewed. The patient is a 26 year old black female with a past medical history of ADHD, a pediatric stroke on the right side, and seizures, who presents to the ED with a cc of a resolved seizure that occurred 45 minutes ago. Differential diagnosis: Etiologies such as infection, hypoglycemia, electrolyte abnormalities, cardiac sources, intracerebral event, trauma, toxicologic, neurologic, as well as others were entertained. Patient was seen and evaluated the bedside. Patient reportedly had a seizure. This is witnessed in approximately 3 minutes in length that occurred [place] [employer]. The patient was seated and slid down from that. Patient has some generalized shaking. Patient has been seen repeatedly in the emergency department for seizures. She states that she was recently being titrated off of her Keppra. Patient denies any alcohol, tobacco, drugs, stimulants, and decreased sleep. Of note the patient does have a difficult social situation currently does not have a permanent home. Patient did not have any focal neuro deficits. Patient does have some chronic right upper extremity and right lower extremity weakness. Her right hand is also contracted which is chronic. Patient did have blood work completed, urinalysis, urine test, chest x-ray, CT the brain. Patient had a fairly unremarkable workup. CT brain and chest x-ray were clear. Blood work is unremarkable. The patient was given additional Keppra. Given that the patient was recently weaned off her Keppra she was told to resume her original dose. Patient states that she did not miss any doses and took her Keppra this morning. I did have manager of case look through some of her records to see if she was being seen by established physicians. Patient has been seen in the primary care office. The patient does have follow-up with [facility] [employer] later this month. The patient does have a strict neuro follow-up with Dr. Perez in August. Patient was advised to continue to take her Keppra and to resume her normal dose. Of note the patient is supposed to be taking 1250 mg twice daily. Patient was told to continue this. Patient was told return if she has any worsening symptoms. Patient was given strict follow-up, discharge, and return precautions. All questions were answered. Patient was deemed suitable for outpatient follow-up at this time. Patient agreed with the plan of care and was safely discharged home. Head Trauma GCS Score: 15 Medication Reconcilliation Current Medication List: was personally reviewed by me Blood Pressure Screening Patient's blood pressure: Normal blood pressure Blood pressure disposition: Did not require urgent referral Impression Primary Impression: Seizures Scribe Attestation The scribe's documentation has been prepared under my direction and personally reviewed by me in its entirety. I confirm that the note above accurately reflects all work, treatment, procedures, and medical decision making performed by me. Departure Information Dispostion Home / Self-Care Referrals No Doctor, Assigned (PCP) Forms HOME CARE DOCUMENTATION FORM, IMPORTANT VISIT INFORMATION Patient Instructions ED Seizure Recurrent, My [facility] Additional Instructions Please return to the emergency department if you have worsening or recurrent symptoms not amenable to at-home treatment. Please call for a follow-up appointment with her primary care physician. Please take your medications as prescribed. If you have other concerns and/or complaints please feel free to also call your primary care physician's office or return the ED for further evaluation, management, and treatment. Please resume taking your Keppra 1250 mg twice daily. Keep your follow-up appointment with your [facility] as well as your neurologist. You have been examined and treated today on an emergency basis only. This is not a substitute for, or an effort to provide, complete comprehensive medical care. It is impossible to recognize and treat all injuries or illnesses in a single emergency department visit. It is therefore important that you follow up closely with [facility], your PCP, and/or your specialist(s). Call as soon as possible for an appointment. Thank you for your time and consideration. I look forward to speaking with you again soon. Please don't hesitate to call us if you have any questions.
--- NOTE | 2017-08-07 18:56 | DIAGNOSTIC IMAGING REPORT ---
CHEST ONE VIEW PORTABLE HISTORY: 26 years-old Female SEIZURE acute seizure COMPARISON: None available TECHNIQUE: Portable AP view of the chest FINDINGS: The patient is rotated and side bent to the right. Cardiac silhouette is within normal limits. Lungs are mildly hypoinflated with bronchovascular crowding. No pneumothorax, pleural effusion, focal airspace consolidation or overt pulmonary edema. Bones of the chest appear grossly intact. Mild gastric distention of the stomach. IMPRESSION: Mild hypoinflation without acute process. The above report was generated using voice recognition software. It may contain grammatical, syntax or spelling errors. Electronically signed by: Andrew Hawkins M.D. 08/07/2017 6:55 PM Dictated Date/Time: 08/07/2017 6:53 PM
[2017-08-07 19:10] LABS: BASO % 0.4 %; BASO ABS # 0.03 K/uL (0-0.2); EOS % 1.2 %; EOS ABS # 0.09 K/uL (0-0.5); HEMATOCRIT 37.4 % (37-47); HEMOGLOBIN 13.1 g/dL (12.0-16.0); IG# 0.03 K/uL (0.00-0.02); LYMPH % 23.7 %; LYMPH ABS # 1.76 K/uL (1.2-3.4); MEAN CELL VOLUME 83.9 fL (80-100); MEAN CORPUSCULAR HEMOGLOBIN 29.4 pg (25-34); MONO % 6.3 %; MONO ABS # 0.47 K/uL (0.11-0.59); NEUT ABS # 5.06 K/uL (1.4-6.5); PLATELET COUNT 274 K/uL (130-400); RED CELL DISTRIBUTION WIDTH CV 13.3 % (11.5-14.5); RED CELL DISTRIBUTION WIDTH SD 40.2 fL (36.4-46.3); WHITE BLOOD COUNT 7.44 K/uL (4.8-10.8)
[2017-08-07] MEDS ORDERED: LEVETIRACETAM IV 250 MG in DEXTROSE 5% 100ML 100 ML IV STA (19:15)
[2017-08-07 19:28] LABS: CALCIUM 8.8 mg/dl (8.5-10.1); CREATININE 0.79 mg/dl (0.60-1.20); POTASSIUM 3.7 mmol/L (3.5-5.1)
--- NOTE | 2017-08-07 19:31 | DIAGNOSTIC IMAGING REPORT ---
HEAD WITHOUT CONTRAST (CT) CLINICAL HISTORY: 26 years-old Female with SEIZURE. Acute seizure TECHNIQUE: Multiple axial CT images of the head were obtained without contrast. A dose lowering technique was utilized adhering to the principles of ALARA. CT DOSE: 537.48 mGy.cm COMPARISON: CT head 06/06/2017. FINDINGS: No acute intracranial hemorrhage, midline shift, intracranial mass, hydrocephalus, territorial ischemia or abnormal extra-axial collection. Encephalomalacia of the left MCA distribution redemonstrated from area of remote infarction with ex vacuo dilation of the left lateral ventricle. Wallerian degeneration of the left midbrain. The calvarium is intact. The paranasal sinuses, mastoid air cells, and middle ear cavities are clear. IMPRESSION: No acute intracranial abnormality. The above report was generated using voice recognition software. It may contain grammatical, syntax or spelling errors. Electronically signed by: Andrew Hawkins M.D. 08/07/2017 7:30 PM Dictated Date/Time: 08/07/2017 7:27 PM
[2017-08-07 19:38] LABS: PHOSPHORUS 2.7 mg/dl (2.5-4.9)
[2017-08-07] MEDS ORDERED: KPP/1000 PO (19:59)
[2017-08-07] MEDS ORDERED: LEVE250T PO (20:01)
[2017-08-07] MEDS ORDERED: FLUO10CA48 PO (20:02)
[2017-08-07 20:24] VITALS: BP 125/64; PULSE 94; O2SAT 98
== END 2017-08-07 20:26 | disposition home or self-care (01) ==
LOC: C.EDA 18:09
DX: R56.9 Unspecified convulsions (principal); F90.9 Attention-deficit hyperactivity disorder, unspecified type; Z86.73 Personal history of transient ischemic attack (TIA), and cerebral infarction without residual deficits; Z82.49 Family history of ischemic heart disease and other diseases of the circulatory system; Z80.9 Family history of malignant neoplasm, unspecified; Z83.3 Family history of diabetes mellitus; F17.210 Nicotine dependence, cigarettes, uncomplicated; Z79.899 Other long term (current) drug therapy